=== PATIENT | male | born 1955 | race Caucasian/White ===

== ENCOUNTER → 2023-09-03 09:56 | Outpatient (CLI) | payer MEDICARE, OTHER, SELFPAY ==
--- NOTE | 2023-09-03 10:03 | DI.CT.S_ITS ---
PROCEDURE: CT SINUS SCREEN WO CON INDICATIONS: Chronic pansinusitis TECHNIQUE: Noncontrast 3.0 mm axial images acquired from the frontal sinuses to the mid-sella, with coronal and sagittal reformats. For radiation dose reduction, the following was used: automated exposure control, adjustment of mA and/or kV according to patient size. COMPARISON: (The accompanying soft tissue neck CT cannot be viewed at the time of this dictation.) FINDINGS: Image quality: Excellent. Maxillary Sinuses: No bony remodeling or destruction. Sinuses are clear. Ethmoid Air Cells: No bony remodeling or destruction. Sinuses are clear. Sphenoid Sinuses: No bony remodeling or destruction. Sinuses are clear. Frontal Sinuses: No bony remodeling or destruction. Sinuses are clear. Ostiomeatal Complexes: The ostiomeatal complexes are patent, yet they are constitutionally narrowed, with bilateral Yany cells. Miscellaneous: Visualized intra-orbital contents are normal. There are bilateral truman bullosa seen. There is moderate rightward nasal septal deviation. IMPRESSION: No active paranasal sinus disease is seen. The ostiomeatal complexes are patent, yet they are constitutionally narrowed, with bilateral Yany cells. There are bilateral truman bullosa is seen. Moderate rightward nasal septal deviation can be seen. Dictated by: Juan Jose Antonio M.D. on 09/03/2023 at 11:33 Approved by: Juan Jose Antonio M.D. on 09/03/2023 at 11:35
--- NOTE | 2023-09-03 10:04 | DI.CT.S_ITS ---
PROCEDURE: CT SOFT TISSUE NECK W CON INDICATIONS: Retropharyngeal Abscess TECHNIQUE: After the administration of intravenous contrast, 3.0 mm axial sections acquired from the sella to the aortic arch. Additional oblique axial 3.0 mm sections acquired through the pharynx. 3 mm thick coronal and sagittal reformats were generated. For radiation dose reduction, the following was used: automated exposure control. COMPARISON: Outside Facility, , CT SOFT TISSUE NECK WITH CONTRAST, 07/11/2023, 8:51. FINDINGS: Image quality: Excellent. Lymph nodes: No enlarged lymph nodes seen throughout the neck. Vessels: Visualized vasculature appears patent. Neck spaces: On the prior study, there was an abscess seen within the retropharyngeal region, within the superior mediastinum. On the current study, this is no longer seen. Within the esophagus, there is fluid seen. The oropharynx, nasopharynx, and pharynx demonstrate no mucosal lesions. The vocal cords, false vocal cords, pyriform sinuses, epiglottis, vallecula, and tongue base all appear normal. Extramucosal spaces appear unremarkable. Glands: The parotid and submandibular glands appear normal. Thyroid gland is again noted to be irregular, with a 3 cm left-sided nodule. Miscellaneous: Visualized brain and orbits appear normal. Lung apices appear clear. Superficial soft tissues appear normal. Bones: No suspicious bony lesions. Visualized sinuses and mastoids appear unremarkable. Moderate cervical spine degenerative change can be seen. IMPRESSION: Resolution of the previously seen retropharyngeal/superior mediastinal abscess. Presumed reflux can be seen, with fluid within the esophagus. Thyroid nodules are again seen. If clinically appropriate, please consider a follow-up dedicated thyroid ultrasound for further evaluation. Dictated by: Juan Jose Antonio M.D. on 09/07/2023 at 15:44 Approved by: Juan Jose Antonio M.D. on 09/07/2023 at 15:47
[2023-09-03 11:00] LABS: Estimated Glomerular Filt Rate > 60 mL/min (>60)
== END ==
PROVIDERS: Radiology Diagnostic Radiology; Family Provider Family Medicine; PCP Family Medicine; Referring Provider Internal Medicine; Visit Provider Internal Medicine
DX: J32.4 Chronic pansinusitis (principal); J39.0 Retropharyngeal and parapharyngeal abscess; J34.89 Other specified disorders of nose and nasal sinuses; J34.2 Deviated nasal septum; J34.3 Hypertrophy of nasal turbinates
CPT/HCPCS: 36415; 70486; 70491; 82565; Q9967